=== PATIENT | female | born 1990 | race Caucasian/White ===

== ENCOUNTER 2017-04-03 08:19 | Inpatient (IN) | payer BC, MEDICAID ==
[2017-04-03] MEDS ORDERED: BRETHINE 1 MG/ML SQ PRN (17:48)
[2017-04-03] MEDS ORDERED: Zofran 4 MG/2 ML VIAL IV PRN (18:49)
[2017-04-03] MEDS ORDERED: TYLENOL EXTRA STRENGTH 500 MG PO PRN (18:49)
[2017-04-03] MEDS ORDERED: STADOL 2 MG IV PRN (18:49)
[2017-04-03] MEDS ORDERED: Nubain 10 MG/ML IV PRN (18:49)
[2017-04-03] MEDS ORDERED: Phenergan 25 MG INJ IV PRN (18:49)
[2017-04-03] MEDS ORDERED: XYLOCAINE 1% HCL 20 ML MDV IJ PRN (18:49)
[2017-04-03] MEDS ORDERED: Cervidil 10 MG VAG SCH (19:00)
[2017-04-03 19:34] LABS: BASOPHIL % 0.1 % (0.0-0.4); Basophil (Absolute #) 0.01 (0-0.4); Eosinophil % 1.3 % (0.00-5.0); Eosinophil (Absolute #) 0.12 (0-0.5); Granulocyte Absolute (ANC) 7.16 (1.4-6.9); Granulocytes % 78.7 % (36.0-66.0); Hematocrit 27.9 % (35-47); Hemoglobin 8.8 gm/dl (12.0-16.0); Lymphocyte (Absolute #) 1.35 (1.0-4.6); Lymphocytes % 14.9 % (24.0-44.0); Mean Cell Volume 77.7 fl (78-100); Mean Corpuscular Hemoglobin 24.5 pg (26-32); Mean Corpuscular Hgb Concent. 31.5 g/dl (32-36); Mean Platelet Volume 12.5 fl (6-9.5); Monocyte (Absolute #) 0.45 (0.0-1.3); Platelet Count 282 K/mm3 (150-450); Red Blood Count 3.59 M/mm3 (4.1-5.4); Red Cell Distribution Width 14.8 % (11.5-14.0); White Blood Count 9.1 K/mm3 (4.0-10.5)
[2017-04-03 19:39] LABS: Amphetamine,Urine NEG. (NEGATIVE); Barbiturate,Urine NEG. (NEGATIVE); Benzodiazepine,Urine NEG. (NEGATIVE); Cocaine,Urine NEG. (NEGATIVE); Methadone,Urine NEG. (NEGATIVE); Opiate,Urine NEG. (NEGATIVE); PCP,Urine NEG. (NEGATIVE); THC,Urine NEG. (NEGATIVE)
[2017-04-04] MEDS: Lactated Ringers 1,000 ML IV SCH ×2 (05:37→09:04)
[2017-04-04] MEDS ORDERED: PITOCIN 30 UNITS/ LR 500 ML 500 ML IV SCH (06:00)
--- NOTE | 2017-04-04 08:34 | XRAY ---
Indication: well-being. Ultrasound biophysical profile study was performed. Comparison: None There is a single viable intrauterine currently in cephalic presentation with heart rate 153 bpm. 4 quadrant MONIQUE is 14.5 cm. Largest amniotic pocket is 7 cm. 2 points given for movements, tone, and amniotic fluid volume. 0 points given for breathing. Impression: Total biophysical profile score is 6 out of 8. Comment: Preliminary report was given to nurse Reis following the exam.
[2017-04-04] MEDS ORDERED: Pepcid 20 MG VIAL IV ONE (10:16)
[2017-04-04] MEDS ORDERED: Reglan 10 MG/2 ML ONE (10:16)
[2017-04-04] MEDS ORDERED: Lactated Ringers 2,000 ML IV ONE (10:29)
[2017-04-04] MEDS ORDERED: KEFZOL 1 GM ONE (10:29)
[2017-04-04] MEDS ORDERED: Reglan 10 MG/2 ML IV SCH (10:30)
[2017-04-04] MEDS ORDERED: Pepcid 20 MG VIAL IV SCH (10:30)
[2017-04-04 10:58] LABS: PTT 28.9 SECONDS (25.3-37.0)
[2017-04-04 11:29] LABS: ABO TYPING A; Antibody Screen NEGATIVE (NEGATIVE); RH TYPING POSITIVE
[2017-04-04] MEDS ORDERED: CLARITIN 10 MG PO PRN (13:04)
[2017-04-04] MEDS ORDERED: Narcan 0.4 MG/ML IV PRN (13:04)
[2017-04-04] MEDS ORDERED: HOLD NARCOTIC ANALGESICS AND SEDATIVES X24 HR MC PRN (13:04)
[2017-04-04] MEDS ORDERED: MORPHINE SULFATE 2 MG INJ IV PRN (13:04)
[2017-04-04] MEDS ORDERED: Nubain 10 MG/ML IV PRN (13:04)
[2017-04-04] MEDS ORDERED: BENADRYL 50 MG/ML IV PRN (13:04)
[2017-04-04] MEDS ORDERED: DEMEROL 50 MG IV PRN (13:04)
[2017-04-04] MEDS: PERCOCET TABLET 5/325MG PO PRN (13:24)
--- NOTE | 2017-04-04 13:50 | OP ---
SURGERY DATE: 04/04/17 SURGERY TIME: 1050 PREOPERATIVE DIAGNOSES: 1. NONREASSURING HEART TONES. POSTOPERATIVE DIAGNOSES: 1. NONREASSURING HEART TONES. PROCEDURE: 1. Primary section. SURGEON: Hamzah Wyatt M.D. ANESTHESIA: Spinal by Matthew Garcia CRNA. SPECIMEN: 1. Placenta was sent for pathology. ESTIMATED BLOOD LOSS: 400 cc. IV: 700 cc of crystalloid. URINE: 100 cc of clear, straw-colored urine. DESCRIPTION OF PROCEDURE: After informed written consent was obtained, the patient was taken to the OR. She had her previously placed laboring epidural dosed by anesthesia and was prepped and draped in the usual sterile fashion. After adequate level of anesthesia was confirmed, a low transverse skin incision was made by knife and carried down to the subcutaneous fat to the level of the fascia. The fascia was nicked on both sides of the midline and extended using curved Nolasco scissors. Superior free edge of the fascia was then grasped with Pascale clamps and the underlying rectus muscles were dissected free. The same was repeated inferiorly. The peritoneal cavity was then opened and bladder blade was inserted and a bladder flap was created and reflected over the lower uterine segment. Horizontal uterine incision was made by knife and carried down to the level of the amniotic membranes which were artificially ruptured. A viable male infant was delivered from the vertex presentation with a strong cry after stimulation. His oropharynx and nares were bulb suctioned free, cord was clamped and cut, and he was handed off to the awaiting nursery team. The placenta was then removed from the uterine cavity and the uterus was exteriorized. The uterine cavity was wiped free of blood and clot and any remaining membranes with Lap sponge. The uterine incision was closed with #1 chromic in a running, locked fashion with good closure and good hemostasis. The posterior cul-de-sac was wiped free of blood and clot and then the uterus was returned to the peritoneal cavity. Lateral gutters were then wiped free of blood and clot with moist Lap sponge and again, the uterine incision was inspected and noted to be hemostatic with good closure. Next, the fascia was closed with 0 Vicryl in a running fashion with good closure and good hemostasis. Subcutaneous fat was irrigated with warm, sterile saline and any areas of bleeding were cauterized with electrocautery. Finally, the skin layer was closed with 4-0, undyed Vicryl in running subcuticular fashion. Steri-Strips and occlusive dressing were placed over the incision and the patient was transferred to the recovery room in excellent condition.
[2017-04-04] MEDS ORDERED: DIPRIVAN 200 MG/20 ML IV ONE (16:01)
[2017-04-04] MEDS ORDERED: Ketamine HCl 50 MG/ML IJ ONE (16:01)
[2017-04-04] MEDS ORDERED: SUBLIMAZE 100 MCG/2 ML IV ONE (16:01)
[2017-04-04] MEDS ORDERED: Nesacaine 3% -Mpf*** 20ML SDV IJ ONE (16:01)
[2017-04-04] MEDS ORDERED: MARCAINE 0.5%-EPI 1:200,000 VL IJ ONE (16:01)
[2017-04-04] MEDS ORDERED: Pitocin 10 UNITS/ML IV ONE (16:01)
[2017-04-04] MEDS ORDERED: Astramorph-Pf 5 MG/10 ML IJ ONE (16:01)
[2017-04-04] MEDS ORDERED: TORAdol 30 mg Injection IJ ONE (16:01)
[2017-04-04] MEDS ORDERED: Versed 2 MG/2 ML Injection IV ONE (16:01)
[2017-04-04] MEDS ORDERED: XYLOCAINE 2%/Epi 1:200000 20ML VIAL MPF IJ ONE (16:01)
[2017-04-04] MEDS ORDERED: Restoril 15 MG PO PRN (18:55)
[2017-04-04] MEDS ORDERED: CORTISONE 1% CREAM TP PRN (18:55)
[2017-04-04] MEDS ORDERED: Adacel Vial IM ONE (18:55)
[2017-04-04] MEDS ORDERED: Dulcolax 10 MG SUPP PR PRN (18:55)
[2017-04-04] MEDS ORDERED: Anucort-HC SUPPOSITORY PR PRN (18:55)
[2017-04-04] MEDS ORDERED: Ambien 10 MG PO PRN (18:55)
[2017-04-04] MEDS ORDERED: Dextrose 5%-Lr IV Solution 1000 ML 1,000 ML IV ONE (19:58)
[2017-04-04] MEDS: Dextrose 5%-Lr IV Solution 1000 ML 1,000 ML IV SCH (20:04)
[2017-04-04] MEDS: Colace 100 MG PO SCH (22:04)
[2017-04-05] MEDS: PERCOCET TABLET 5/325MG PO PRN (01:09)
[2017-04-05] MEDS: Dextrose 5%-Lr IV Solution 1000 ML 1,000 ML IV SCH (04:00)
[2017-04-05] MEDS: MOTRIN 400 MG PO PRN ×3 (06:05→21:33)
[2017-04-05 06:10] LABS: Basophil (Absolute #) 0 (0-0.4); Eosinophil % 0.6 % (0.00-5.0); Eosinophil (Absolute #) 0.05 (0-0.5); Granulocyte Absolute (ANC) 6.62 (1.4-6.9); Granulocytes % 83.2 % (36.0-66.0); Hematocrit 22.7 % (35-47); Hemoglobin 7.1 gm/dl (12.0-16.0); Lymphocyte (Absolute #) 0.92 (1.0-4.6); Lymphocytes % 11.6 % (24.0-44.0); Mean Cell Volume 79.1 fl (78-100); Mean Corpuscular Hemoglobin 24.7 pg (26-32); Mean Corpuscular Hgb Concent. 31.3 g/dl (32-36); Mean Platelet Volume 12.2 fl (6-9.5); Monocyte (Absolute #) 0.37 (0.0-1.3); Monocytes % 4.6 % (0.0-12.0); Platelet Count 196 K/mm3 (150-450); Red Blood Count 2.87 M/mm3 (4.1-5.4); Red Cell Distribution Width 14.4 % (11.5-14.0)
[2017-04-05] MEDS: FERREX 150 PO SCH (10:12)
[2017-04-05] MEDS: Colace 100 MG PO SCH ×2 (10:12→21:33)
[2017-04-05 11:39] VITALS: O2SAT 94
[2017-04-05] MEDS: NORCO 5/325 MG PO PRN ×3 (12:50→21:33)
[2017-04-06] MEDS: NORCO 5/325 MG PO PRN ×6 (01:34→23:42)
[2017-04-06] MEDS: MOTRIN 400 MG PO PRN ×3 (05:36→22:16)
[2017-04-06] MEDS: FERREX 150 PO SCH (10:02)
[2017-04-06] MEDS: Colace 100 MG PO SCH ×2 (10:04→22:16)
[2017-04-06] MEDS ORDERED: PHARMACY DOSING REQUIRED: VANCOMYCIN IV ONE (11:23)
[2017-04-06] MEDS: VANCOCIN 1 GM VIAL*** 1 GM in Sodium Chloride 0.9% 250 ML 250 ML IV SCH ×2 (12:57→21:09)
[2017-04-06] MEDS: FEOSOL 325 MG PO SCH ×2 (15:16→22:16)
[2017-04-07] MEDS: VANCOCIN 1 GM VIAL*** 1 GM in Sodium Chloride 0.9% 250 ML 250 ML IV SCH ×3 (05:31→23:30)
[2017-04-07] MEDS: MOTRIN 400 MG PO PRN ×2 (05:33→16:15)
[2017-04-07] MEDS: NORCO 5/325 MG PO PRN ×3 (05:33→17:17)
[2017-04-07 06:43] LABS: BASOPHIL % 0.2 % (0.0-0.4); Basophil (Absolute #) 0.01 (0-0.4); Eosinophil % 4.2 % (0.00-5.0); Eosinophil (Absolute #) 0.22 (0-0.5); Granulocyte Absolute (ANC) 3.77 (1.4-6.9); Granulocytes % 71.5 % (36.0-66.0); Hematocrit 21.3 % (35-47); Lymphocyte (Absolute #) 1.06 (1.0-4.6); Lymphocytes % 20.1 % (24.0-44.0); Mean Cell Volume 80.7 fl (78-100); Mean Corpuscular Hemoglobin 24.6 pg (26-32); Mean Corpuscular Hgb Concent. 30.5 g/dl (32-36); Mean Platelet Volume 11.4 fl (6-9.5); Monocyte (Absolute #) 0.21 (0.0-1.3); Platelet Count 210 K/mm3 (150-450); Red Blood Count 2.64 M/mm3 (4.1-5.4); Red Cell Distribution Width 14.7 % (11.5-14.0); White Blood Count 5.3 K/mm3 (4.0-10.5)
[2017-04-07 06:46] LABS: Hemoglobin 6.5 gm/dl (12.0-16.0)
[2017-04-07 06:54] LABS: ALBUMIN 1.9 g/dL (3.4-5.0); ALKALINE PHOSPHATASE 93 U/L (46-116); ANION GAP 12.8 MEQ/L (5-15); BLOOD UREA NITROGEN 11 mg/dL (9-20); CHLORIDE 106 mEq/L (98-107); Calcium 8.4 mg/dL (8.5-10.1); Creatinine 1 0.57 mg/dl (0.55-1.30); EST GLOMERULAR FILTRATION RATE > 60 ML/MIN; Glucose 85 MG/DL (70-110); Potassium 3.9 mEq/L (3.5-5.1); SGOT/AST 18 U/L (15-37); SGPT/ALT 10 U/L (12-78); SODIUM 140 mEq/L (136-145)
[2017-04-07] MEDS: Colace 100 MG PO SCH (10:16)
[2017-04-07] MEDS: FEOSOL 325 MG PO SCH ×2 (10:16→14:43)
[2017-04-07] MEDS ORDERED: Sodium Chloride 0.9% 1000 ML 1,000 ML IV SCH ×2 (10:30→11:45)
[2017-04-08] MEDS: FEOSOL 325 MG PO SCH ×2 (00:50→10:17)
[2017-04-08] MEDS: Colace 100 MG PO SCH ×2 (00:50→10:17)
[2017-04-08] MEDS: NORCO 5/325 MG PO PRN ×3 (00:51→10:16)
[2017-04-08 01:19] LABS: BASOPHIL % 0.2 % (0.0-0.4); Basophil (Absolute #) 0.01 (0-0.4); Eosinophil % 4.9 % (0.00-5.0); Eosinophil (Absolute #) 0.23 (0-0.5); Granulocyte Absolute (ANC) 3.16 (1.4-6.9); Granulocytes % 67.7 % (36.0-66.0); Hemoglobin 7.8 gm/dl (12.0-16.0); Lymphocyte (Absolute #) 1.05 (1.0-4.6); Lymphocytes % 22.5 % (24.0-44.0); Mean Cell Volume 80.6 fl (78-100); Mean Corpuscular Hemoglobin 25.1 pg (26-32); Mean Corpuscular Hgb Concent. 31.2 g/dl (32-36); Mean Platelet Volume 10.8 fl (6-9.5); Monocyte (Absolute #) 0.22 (0.0-1.3); Monocytes % 4.7 % (0.0-12.0); Platelet Count 207 K/mm3 (150-450); Red Cell Distribution Width 14.4 % (11.5-14.0); White Blood Count 4.7 K/mm3 (4.0-10.5)
[2017-04-08] MEDS ORDERED: MOTRIN 400 MG ONE (02:47)
[2017-04-08] MEDS: MOTRIN 400 MG PO PRN (03:30)
[2017-04-08] MEDS ORDERED: TROUGH DRUG LEVELS IJ ONE (05:30)
[2017-04-08] MEDS: VANCOCIN 1 GM VIAL*** 1 GM in Sodium Chloride 0.9% 250 ML 250 ML IV SCH (06:56)
--- NOTE | 2017-04-08 09:03 | PCM.DS ---
Discharge Summary Date of Admission: 04/04/17 08:19 Admitting Physician: YUDITH JOHNSON Consults: Consults on Case 04/04/17 13:04 Notify Anesthesia Provider PRN Primary Care Provider: YUDITH JOHNSON Allergies Allergies No Known Drug Allergies Allergy (Verified 04/03/17 19:04) Hospital Summary - Hospital Course Hospital Course: patient was induced elective at 39 wks EGA and required primary for nonreassuring heart tones. she developed an area of redness above her incision post-operatively and required 2 units of packed red blood cells transfused for anemia (preop hemoglobin was only 8.8) the redness has improved, she is ambulating and doing well. - Vitals & Intake/Output Vital Signs: Vital Signs Temperature 97.8 F 04/08/17 02:00 Pulse Rate 68 04/08/17 02:00 Respiratory Rate 20 04/07/17 13:42 Blood Pressure 138/65 04/08/17 02:00 O2 Sat by Pulse Oximetry 94 L 04/05/17 11:00 Intake & Output: Intake & Output 04/05/17 04/06/17 04/07/17 04/08/17 11:59 11:59 11:59 11:59 Intake Total 3625 2600 2450 3380 Output Total 3900 Balance -275 2600 2450 3380 - Lab Result Diagrams: 04/08/17 01:10 04/07/17 05:20 Lab Results-Last 24 Hrs: Lab Results-Last 24 Hours 04/07/17 04/07/17 04/08/17 Range/Units 10:24 10:55 01:10 WBC 4.7 (4.0-10.5) K/mm3 RBC 3.10 L (4.1-5.4) M/mm3 Hgb 7.8 L (12.0-16.0) gm/dl Hct 25.0 L (35-47) % MCV 80.6 (78-100) fl MCH 25.1 L (26-32) pg MCHC 31.2 L (32-36) g/dl RDW 14.4 H (11.5-14.0) % Plt Count 207 (150-450) K/mm3 MPV 10.8 H (6-9.5) fl Gran % 67.7 H (36.0-66.0) % Lymphocytes % 22.5 L (24.0-44.0) % Monocytes % 4.7 (0.0-12.0) % Eosinophils % 4.9 (0.00-5.0) % Basophils % 0.2 (0.0-0.4) % Basophils # 0.01 (0-0.4) Vancomycin Trough (10-20) UG/ML Crossmatch COMPATIBLE COMPATIBLE (COMPATIBLE) 04/08/17 Range/Units 06:55 WBC (4.0-10.5) K/mm3 RBC (4.1-5.4) M/mm3 Hgb (12.0-16.0) gm/dl Hct (35-47) % MCV (78-100) fl MCH (26-32) pg MCHC (32-36) g/dl RDW (11.5-14.0) % Plt Count (150-450) K/mm3 MPV (6-9.5) fl Gran % (36.0-66.0) % Lymphocytes % (24.0-44.0) % Monocytes % (0.0-12.0) % Eosinophils % (0.00-5.0) % Basophils % (0.0-0.4) % Basophils # (0-0.4) Vancomycin Trough 8.2 L (10-20) UG/ML Crossmatch (COMPATIBLE) Discharge Exam General Appearance: no apparent distress, alert Respiratory Exam: normal breath sounds, lungs clear, No respiratory distress Cardiovascular Exam: regular rate/rhythm, normal heart sounds Gastrointestinal/Abdomen Exam: soft, normal bowel sounds, other (incision c/d/i , bruising and subcut. fluid accumulation to pannus) Extremity Exam: normal inspection, normal range of motion Final Diagnosis/Problem List - Final Discharge Diagnosis/Problem (1) delivery delivered Current Visit: Yes Status: Acute (2) Anemia due to blood loss Current Visit: Yes Status: Acute (3) Seroma after procedure Current Visit: Yes Status: Acute - Discharge Disposition: Home, Self-Care Condition: Stable Prescriptions: New Docusate Sodium 100 mg [Colace 100 MG] 100 mg PO BID #60 capsule Ferrous Sulfate 325 mg [Feosol 325 mg] 325 mg PO TID #90 tablet Hydrocodone/Acetaminophen [[place] 5-325 Tablet] 1 each PO Q4-6HPRN PRN #30 tablet MDD 6 PRN Reason: Pain Continue Pediatric Multivitamin No.42 [Flintstones] 1 each PO DAILY Follow up with: YUDITH JOHNSON MD [Primary Care Provider] - 1 Week
[2017-04-08 09:23] VITALS: BP 141/67; PULSE 59
== END 2017-04-08 10:25 | disposition home or self-care (01) | DRG 765 ==
LOC: OB 08:19 → OBSVTOIN 04-04 08:19
PROVIDERS: ADMIT Family Medicine; ATTEND Family Medicine
PROC: 10D00Z1 Extraction of Products of Conception, Low, Open Approach (ICD-10-PCS; principal; 2017-04-04)
DX: O75.0 Maternal distress during labor and delivery (principal); D62 Acute posthemorrhagic anemia; O76 Abnormality in fetal heart rate and rhythm complicating labor and delivery; Z3A.39 39 weeks gestation of pregnancy; Z37.0 Single live birth; O90.2 Hematoma of obstetric wound
CPT/HCPCS: 01967; 01968; 36415; 36430; 62322; 64488; 76819; 76937; 76942; 80053; 80202; 80307; 85025; 85610; 85730; 86850; 86900; 86901; 86922; 90471; 90715; 99140; G0378; J0690; J1885; J2250; J2274; J2405; J2590; J2704; J3010; J3370; L0625; P9016; A9270-GY

== ENCOUNTER 2022-01-16 15:22 | Emergency (ER) | payer BC, OTHER ==
[2022-01-16 16:02] LABS: Appearance CLEAR (CLEAR); Bilirubin NEGATIVE (NEGATIVE); Epithelial Cells RARE /HPF (FEW); Glucose NEGATIVE (NEGATIVE); Ketones TRACE (NEGATIVE); Mucus SLIGHT /HPF (NEGATIVE); Ph 5.5 (5-6); Protein,Urine Dip NEGATIVE (Negative); RBC 0-2 /HPF (0-2); RBC NEGATIVE Ery/ul (0-5); Specific Gravity 1.025 (1.005-1.025)
[2022-01-16 16:03] LABS: Dipstick done @ ? MAIN LAB; Nitrite NEGATIVE (NEGATIVE); Urine Cultured Indicated? NO; Urobilinogen 4 mg/dL (0-1)
[2022-01-16 16:47] LABS: ALKALINE PHOSPHATASE 60 U/L (38-126); AMYLASE 43 U/L (30-110); ANION GAP 9.4 MEQ/L (5-15); BLOOD UREA NITROGEN 13 mg/dL (7-17); Basophil (Absolute #) 0.02 x10^3/uL (0-0.4); CHLORIDE 105 mmol/L (98-107); Calcium 8.2 mg/dL (8.4-10.2); Carbon Dioxide 25 mmol/L (22-30); Creatinine 1 0.52 mg/dL (0.52-1.04); EST GLOMERULAR FILTRATION RATE > 60.0 ML/MIN; Eosinophil % 2.9 % (0.00-5.0); Eosinophil (Absolute #) 0.13 x10^3/uL (0-0.5); Glucose 130 mg/dL (74-106); Hematocrit 36.4 % (35-47); LIPASE 64 U/L (23-300); Lymphocyte (Absolute #) 0.97 x10^3/uL (1.0-4.6); Lymphocytes % 21.5 % (24.0-44.0); Mean Cell Volume 84.7 fL (78-100); Mean Corpuscular Hemoglobin 27.9 pg (26-32); Mean Platelet Volume 11.1 fL (7.5-11.0); Monocyte (Absolute #) 0.19 x10^3/uL (0.0-1.3); Monocytes % 4.2 % (0.0-12.0); Neutrophil % 70.8 % (36.0-66.0); Platelet Count 222 x10^3/uL (150-450); Potassium 3.7 mmol/L (3.5-5.1); Red Cell Distribution Width 13.1 % (11.5-14.0); SGOT/AST 30 U/L (14-36); SGPT/ALT 28 U/L (0-35); SODIUM 136 mmol/L (137-145); Total Protein 7.4 g/dL (6.3-8.2); White Blood Count 4.5 x10^3/uL (4.0-10.5)
--- NOTE | 2022-01-16 17:11 | ERPHSYRPT ---
- History of Present Illness Time Seen by Provider: 01/16/22 16:00 Patient Subjective Stated Complaint: pt states "I was on my way back from [place] when I began to have this sharp pain." Triage Nursing Assessment: pt ambulated into the er; pt is axo x4; c/o RUQ pain; pt states 2/10 pain to RUQ; c/o N/V/D; abd obese, round, soft; active bowel sounds in all quads; vitals wnl Physician History: Patient is a 31-year-old white female who presents with abdominal pain. Yesterday she started with some nausea and vomiting and diarrhea and today while traveling back to the area from [place] developed severe right upper quadrant pain. She denies any fever chills or sweats. Timing/Duration: yesterday Activities at Onset: none Quality: cramping, stabbing Abdominal Pain Onset Location: RUQ Pain Radiation: back Severity of Pain-Max: severe Severity of Pain-Current: mild Modifying Factors: Improves With: nothing Associated Symptoms: back, diarrhea, nausea, vomiting Previous symptoms: same symptoms as today Allergies/Adverse Reactions: No Known Drug Allergies Allergy (Verified 01/16/22 15:45) Hx Tetanus, Diphtheria Vaccination/Date Given: Yes Hx Influenza Vaccination/Date Given: No Hx Pneumococcal Vaccination/Date Given: No Travel Risk - International Travel Have you traveled outside of the country in past 3 weeks: No - Coronavirus Screening Are you exhibiting any of the following symptoms?: Yes Symptoms: Vomiting/Diarrhea Close contact with a COVID-19 positive Pt in past 14-21 Days: No - Vaccine Status Have you recieved a Covid-19 vaccination: No - Review of Systems Constitutional: No Fever, No Chills Eyes: No Symptoms Ears, Nose, & Throat: No Symptoms Respiratory: No Cough, No Dyspnea Cardiac: No Chest Pain, No Edema, No Syncope Abdominal/Gastrointestinal: Abdominal Pain, Nausea, Vomiting, Diarrhea Genitourinary Symptoms: No Dysuria Musculoskeletal: No Back Pain, No Neck Pain Skin: No Rash Neurological: No Dizziness, No Focal Weakness, No Sensory Changes Psychological: No Symptoms Endocrine: No Symptoms All Other Systems: Reviewed and Negative - Past Medical History Pertinent Past Medical History: No - Past Surgical History Past Surgical History: Yes Female Surgical History: Section - Social History Smoking Status: Current every day smoker How long have you smoked: 2yrs Exposure to second hand smoke: Yes Drug Use: none Patient Lives Alone: No - Female History Hx Now: No - Nursing Vital Signs Nursing Vital Signs: Initial Vital Signs Temperature 97.7 F 01/16/22 15:47 Pulse Rate 84 01/16/22 15:47 Respiratory Rate 18 01/16/22 15:47 Blood Pressure 119/77 01/16/22 15:47 O2 Sat by Pulse Oximetry 98 01/16/22 15:47 Pain Scale Pain Intensity 2 - Physical Exam General Appearance: moderate distress, alert Eye Exam: PERRL/EOMI, eyes nml inspection Ears, Nose, Throat Exam: normal ENT inspection, pharynx normal, moist mucous me mbranes Neck Exam: normal inspection, non-tender, supple, full range of motion Respiratory Exam: normal breath sounds, lungs clear, No respiratory distress Cardiovascular Exam: regular rate/rhythm, normal heart sounds Gastrointestinal/Abdomen Exam: tenderness, guarding, rebound, other (Positive Patel sign), No mass Pelvic Exam: not done Rectal Exam: deferred Back Exam: normal inspection, normal range of motion, No CVA tenderness, No vertebral tenderness Extremity Exam: normal inspection, normal range of motion, pelvis stable Neurologic Exam: alert, oriented x 3, cooperative, normal mood/affect, nml cerebellar function, sensation nml, No motor deficits Skin Exam: normal color, warm, dry SpO2: 98 - Radiology Exams Chest X-ray Interpretation: Other (Right lower lobe infiltrate) - CT Exams Abdomen/Pelvis CT Interpretation: Tele-radiologist Report Ordered Tests: Active Orders 24 hr Category Date Time Status EKG-ER Only STAT Care 01/16/22 15:46 Active IV Insertion STAT Care 01/16/22 15:46 Active ABDOMEN AND PELVIS W/0 CONTRAS [CT] Stat Exams 01/16/22 15:47 Taken CHEST 1 VIEW (PORTABLE) Stat Exams 01/16/22 15:47 Completed AMYLASE Stat Lab 01/16/22 16:00 Completed CBC W DIFF Stat Lab 01/16/22 16:00 Completed CMP Stat Lab 01/16/22 16:00 Completed HCG,QUALITATIVE URINE Stat Lab 01/16/22 15:58 Completed LIPASE Stat Lab 01/16/22 16:00 Completed Lactic Acid Stat Lab 01/16/22 16:06 Completed TROPONIN Q4H Lab 01/16/22 16:00 Completed TROPONIN Q4H Lab 01/16/22 20:00 Ordered TROPONIN Q4H Lab 01/17/22 00:00 Ordered UA W/RFX CULTURE Stat Lab 01/16/22 Completed Lab/Rad Data: Laboratory Result Diagrams 01/16/22 16:00 01/16/22 16:00 Laboratory Results 01/16/22 01/16/22 01/16/22 Range/Units Unknown 16:06 16:00 WBC (4.0-10.5) x10^3/uL RBC (4.1-5.4) x10^6/uL Hgb (12.0-16.0) g/dL Hct (35-47) % MCV (78-100) fL MCH (26-32) pg MCHC (32-36) g/dL RDW (11.5-14.0) % Plt Count (150-450) x10^3/uL MPV (7.5-11.0) fL Gran % (36.0-66.0) % Immature Gran % (Auto) (0.00-0.4) % Nucleat RBC Rel Count (0.00-0.1) % Eos # (Auto) (0-0.5) x10^3/uL Immature Gran # (Auto) (0.00-0.03) x10^3u/L Absolute Lymphs (auto) (1.0-4.6) x10^3/uL Absolute Monos (auto) (0.0-1.3) x10^3/uL Absolute Nucleated RBC (0.00-0.01) x10^3u/L Lymphocytes % (24.0-44.0) % Monocytes % (0.0-12.0) % Eosinophils % (0.00-5.0) % Basophils % (0.0-0.4) % Absolute Granulocytes (1.4-6.9) x10^3/uL Basophils # (0-0.4) x10^3/uL Sodium (137-145) mmol/L Potassium (3.5-5.1) mmol/L Chloride (98-107) mmol/L Carbon Dioxide (22-30) mmol/L Anion Gap (5-15) MEQ/L BUN (7-17) mg/dL Creatinine (0.52-1.04) mg/dL Estimated GFR ML/MIN Glucose (74-106) mg/dL Lactic Acid 0.9 (0.4-2.0) Calcium (8.4-10.2) mg/dL Total Bilirubin (0.2-1.3) mg/dL AST (14-36) U/L ALT (0-35) U/L Alkaline Phosphatase (38-126) U/L Troponin I < 0.012 (0.000-0.034) ng/mL Serum Total Protein (6.3-8.2) g/dL Albumin (3.5-5.0) g/dL Amylase (30-110) U/L Lipase (23-300) U/L Urinalys Dipstick Clnc MAIN LAB Urine Color YELLOW (YELLOW) Urine Appearance CLEAR (CLEAR) Urine pH 5.5 (5-6) Ur Specific [place] 1.025 (1.005-1.025) POC Urine Protein Conf NEGATIVE (Negative) Urine Ketones TRACE (NEGATIVE) Urine Nitrite NEGATIVE (NEGATIVE) Urine Bilirubin NEGATIVE (NEGATIVE) Urine Urobilinogen 4 (0-1) mg/dL Urine Leukocytes NEGATIVE (NEGATIVE) Urine WBC (Auto) NONE (0-5) /HPF Urine RBC (Auto) 0-2 (0-2) /HPF U Epithel Cells (Auto) RARE (FEW) /HPF Urine Bacteria (Auto) NONE (NEGATIVE) /HPF Urine RBC NEGATIVE (0-5) Moises/ul Urine Mucus (Auto) SLIGHT (NEGATIVE) /HPF Ur Culture Indicated? NO Urine Glucose NEGATIVE (NEGATIVE) mg/dL Urine HCG, Qual (Negative) 01/16/22 01/16/22 01/16/22 Range/Units 16:00 16:00 15:58 WBC 4.5 (4.0-10.5) x10^3/uL RBC 4.30 (4.1-5.4) x10^6/uL Hgb 12.0 (12.0-16.0) g/dL Hct 36.4 (35-47) % MCV 84.7 (78-100) fL MCH 27.9 (26-32) pg MCHC 33.0 (32-36) g/dL RDW 13.1 (11.5-14.0) % Plt Count 222 (150-450) x10^3/uL MPV 11.1 H (7.5-11.0) fL Gran % 70.8 H (36.0-66.0) % Immature Gran % (Auto) 0.2 (0.00-0.4) % Nucleat RBC Rel Count 0.0 (0.00-0.1) % Eos # (Auto) 0.13 (0-0.5) x10^3/uL Immature Gran # (Auto) 0.01 (0.00-0.03) x10^3u/L Absolute Lymphs (auto) 0.97 L (1.0-4.6) x10^3/uL Absolute Monos (auto) 0.19 (0.0-1.3) x10^3/uL Absolute Nucleated RBC 0.00 (0.00-0.01) x10^3u/L Lymphocytes % 21.5 L (24.0-44.0) % Monocytes % 4.2 (0.0-12.0) % Eosinophils % 2.9 (0.00-5.0) % Basophils % 0.4 (0.0-0.4) % Absolute Granulocytes 3.20 (1.4-6.9) x10^3/uL Basophils # 0.02 (0-0.4) x10^3/uL Sodium 136 L (137-145) mmol/L Potassium 3.7 (3.5-5.1) mmol/L Chloride 105 (98-107) mmol/L Carbon Dioxide 25 (22-30) mmol/L Anion Gap 9.4 (5-15) MEQ/L BUN 13 (7-17) mg/dL Creatinine 0.52 (0.52-1.04) mg/dL Estimated GFR > 60.0 ML/MIN Glucose 130 H (74-106) mg/dL Lactic Acid (0.4-2.0) Calcium 8.2 L (8.4-10.2) mg/dL Total Bilirubin 0.70 (0.2-1.3) mg/dL AST 30 (14-36) U/L ALT 28 (0-35) U/L Alkaline Phosphatase 60 (38-126) U/L Troponin I (0.000-0.034) ng/mL Serum Total Protein 7.4 (6.3-8.2) g/dL Albumin 4.0 (3.5-5.0) g/dL Amylase 43 (30-110) U/L Lipase 64 (23-300) U/L Urinalys Dipstick Clnc Urine Color (YELLOW) Urine Appearance (CLEAR) Urine pH (5-6) Ur Specific [place] (1.005-1.025) POC Urine Protein Conf (Negative) Urine Ketones (NEGATIVE) Urine Nitrite (NEGATIVE) Urine Bilirubin (NEGATIVE) Urine Urobilinogen (0-1) mg/dL Urine Leukocytes (NEGATIVE) Urine WBC (Auto) (0-5) /HPF Urine RBC (Auto) (0-2) /HPF U Epithel Cells (Auto) (FEW) /HPF Urine Bacteria (Auto) (NEGATIVE) /HPF Urine RBC (0-5) Moises/ul Urine Mucus (Auto) (NEGATIVE) /HPF Ur Culture Indicated? Urine Glucose (NEGATIVE) mg/dL Urine HCG, Qual NEGATIVE (Negative) - Progress Progress: improved - Departure Departure Disposition: Home Clinical Impression: Right lower lobe pneumonia Condition: Stable Critical Care Time: No Referrals: YUDITH JOHNSON MD [Primary Care Provider] - Follow up/PCP as directed Instructions: Pneumonia, Adult (DC) Prescriptions: Cephalexin Mh 500 mg [Keflex 500 mg] 500 mg PO QID #40 cap
--- NOTE | 2022-01-16 17:20 | XRAY ---
Indication: Right upper quadrant pain. Comparison: None Portable apical lordotic chest demonstrates mild right base infiltrate versus atelectasis. Remaining heart, left lung, and bony thorax normal.
[2022-01-16 18:21] VITALS: BP 134/64; PULSE 78
[2022-01-16 18:47] VITALS: O2SAT 98
--- NOTE | 2022-01-17 08:37 | XRAY ---
Indication: Right upper quadrant pain. Multiple contiguous axial images obtained through the abdomen and pelvis without contrast. Comparison: None Lung bases demonstrates mild bibasilar subsegmental atelectasis/scarring. Heart borderline enlarged. Noncontrasted stomach and bowel loops appear nonobstructed with normal appendix. 21.3 cm hepatomegaly and 17 cm splenomegaly. Uterus demonstrates IUD in situ. No free fluid/air. Remaining liver, gallbladder, pancreas, spleen, adrenal glands, kidneys, ureters, bladder, uterus, and aorta are unremarkable for noncontrast exam. Osseous structures intact. No ventral or inguinal hernias. Impression: 1. Borderline cardiomegaly, hepatosplenomegaly, and IUD in situ. 2. Remaining CT abdomen/pelvis without contrast exam is negative.
== END 2022-01-16 18:58 | disposition home or self-care (01) ==
LOC: ED 15:22
DX: J18.9 Pneumonia, unspecified organism (principal); R10.11 Right upper quadrant pain; R11.2 Nausea with vomiting, unspecified; R19.7 Diarrhea, unspecified; Z72.0 Tobacco use; Z28.310 Unvaccinated for COVID-19
CPT/HCPCS: 36000; 36415; 71045; 74176; 80053; 81015; 81025; 82150; 83605; 83690; 84484; 85025; 93005; 99284

== ENCOUNTER 2024-01-23 09:53 | Emergency (ER) | payer BC ==
[2024-01-23 10:09] VITALS: TEMP 97.6
[2024-01-23] MEDS ORDERED: TORAdol 30 mg Injection ONE (10:18)
[2024-01-23] MEDS ORDERED: Zofran 4 MG/2 ML VIAL ONE (10:18)
[2024-01-23 10:22] LABS: Absolute Neutrophil Ct (ANC) 7.53 x10^3/uL (1.56-6.13); BASOPHIL % 0.3 % (0.1-1.2); Basophil (Absolute #) 0.03 x10^3/uL (0.01-0.08); Eosinophil % 0.8 % (0.7-5.8); Eosinophil (Absolute #) 0.08 x10^3/uL (0.04-0.36); Hematocrit 36.8 % (34.1-44.9); Hemoglobin 12.6 g/dL (11.2-15.7); IMMATURE GRAN # 0.03 x10^3u/L (0.001-0.031); IMMATURE GRAN % 0.3 % (0.001-0.429); Lymphocyte (Absolute #) 1.64 x10^3/uL (1.18-3.74); Lymphocytes % 16.7 % (19.3-51.7); Mean Cell Volume 84.6 fL (79.4-94.8); Mean Corpuscular Hgb Concent. 34.2 g/dL (32.2-35.5); Mean Platelet Volume 10.5 fL (9.4-12.3); Monocyte (Absolute #) 0.49 x10^3/uL (0.24-0.86); Neutrophil % 76.9 % (34.0-71.1); Platelet Count 258 x10^3/uL (182-369); Red Blood Count 4.35 x10^6/uL (3.93-5.22); White Blood Count 9.8 x10^3/uL (3.98-10.04)
[2024-01-23] MEDS: Zofran 4 MG/2 ML VIAL IV ONE (10:23)
[2024-01-23] MEDS: TORAdol 30 mg Injection IV ONE (10:23)
[2024-01-23 10:35] LABS: ALBUMIN 4.2 g/dL (3.5-5.0); ANION GAP 15.4 MEQ/L (5-15); BILIRUBIN,TOTAL 1.9 mg/dL (0.2-1.3); Calcium 9.2 mg/dL (8.4-10.2); Creatinine 1 0.6 mg/dL (0.52-1.04); EST GLOMERULAR FILTRATION RATE 121.5 ML/MIN; Potassium 3.7 mmol/L (3.5-5.1); Total Protein 7.6 g/dL (6.3-8.2)
--- NOTE | 2024-01-23 11:31 | XRAY ---
Indication: Left flank pain. Multiple contiguous axial images obtained through the abdomen and pelvis without contrast using renal stone protocol. Comparison: January 16, 2022 Lung bases again demonstrates mild bibasilar subsegmental atelectasis/scarring. No infiltrate or effusion. Heart not enlarged. No renal calculus or evidence for obstructive uropathy in either system. Noncontrasted stomach and bowel loops appear nonobstructed with normal appendix. Again 21.1 cm fatty hepatomegaly, 16.1 cm splenomegaly, and uterine IUD in situ. No free fluid/air. Remaining liver, gallbladder, pancreas, spleen, adrenal glands, kidneys, ureters, bladder, uterus, and aorta are unremarkable for noncontrast exam. Osseous structures intact. Impression: 1. Continued negative renal calculus or evidence for obstructive uropathy. 2. Again fatty hepatomegaly and splenomegaly. 3. No acute findings on this noncontrast exam.
[2024-01-23 11:46] LABS: Appearance Turbid (Clear); Bacteria Moderate /HPF (None Seen); Bilirubin Negative (Negative); Blood Moderate (Negative); Epithelial Cells None Seen /HPF (None Seen); Glucose, Urine >=1000 mg/dL (Negative); Hyaline Casts NONE SEEN /LPF (0-2); Ketones 15 (Negative); Leukocyte Esterase Large (Negative); Nitrite Positive (Negative); Ph 5.5 (4.6-8.0); Protein,Urine Dip 100 (Negative); RBC 21-50 /HPF (0-5); Specific Gravity 1.015 (1.005-1.030); Urobilinogen 0.2 mg/dL (0.2); WBC >100 /HPF (0-5)
[2024-01-23] MEDS: ROCEPHIN 2 GM/100 ML NACL 2 GM/100 ML IVPB IV ONE (11:53)
[2024-01-23] MEDS ORDERED: ROCEPHIN 2 GM/100 ML NACL 2 GM/100 ML IVPB IV ONE (11:53)
[2024-01-23 12:03] VITALS: O2SAT 97
--- NOTE | 2024-01-23 12:23 | ERPHSYRPT ---
- History of Present Illness Time Seen by Provider: 01/23/24 11:06 Historian: patient Exam Limitations: no limitations Patient Subjective Stated Complaint: C/O left flank pain for a few days. States worse today. Triage Nursing Assessment: Patient ambulated back to ER holding/gaurding her left lower back. She is alert and oriented. Tearful. NO SOB. Skin tone normal. Physician History: 33-year-old female presented in the ER for almost 1 week history of left flank pain with progressive worsening since last night, moderate to severe sharp shooting with some radiation to the left lower quadrant, aggravated with palpati on and movements and partial relief with lying in a certain position. Denies associated constipation or diarrhea. No urinary complaints. Reports some nausea but no vomiting. No history of kidney stones. Allergies/Adverse Reactions: No Known Drug Allergies Allergy (Verified 01/23/24 10:01) Hx Tetanus, Diphtheria Vaccination/Date Given: Yes Hx Influenza Vaccination/Date Given: Yes Hx Pneumococcal Vaccination/Date Given: No Immunizations Up to Date: Yes Travel Risk - International Travel Have you traveled outside of the country in past 3 weeks: No - Emerging Infectious Disease Are you exhibiting symptoms associated with any current EIDs: Yes Symptoms: Abdominal Pain - Review of Systems Constitutional: No Symptoms Eyes: No Symptoms Ears, Nose, & Throat: No Symptoms Respiratory: No Symptoms Cardiac: No Symptoms Abdominal/Gastrointestinal: Abdominal Pain, Nausea Genitourinary Symptoms: Flank Pain Musculoskeletal: No Symptoms Skin: No Symptoms Neurological: No Symptoms Psychological: No Symptoms Endocrine: No Symptoms Immunological/Allergic: No Symptoms - Past Medical History Pertinent Past Medical History: No - Past Surgical History Past Surgical History: Yes Female Surgical History: Section - Female History Hx Last Menstrual Period: unsure Hx Now: No (Oralia) - Social History Smoking Status: Current every day smoker How long have you smoked: 13 years Exposure to second hand smoke: Yes Drug Use: none Patient Lives Alone: No - Social Determinants of Health Will the patient participate in the screening: Yes Do you worry about a steady place to live?: No Do you have any problems with any of the following?: No known problems In the past 12 months,have you had to go without utilities?: No Transportation Issues: No Has anyone in your support network made you feel unsafe?: No Have you or anyone in your house had to go without enough: No - Nursing Vital Signs Nursing Vital Signs: Initial Vital Signs Temperature 97.6 F 01/23/24 09:55 Pulse Rate 93 H 01/23/24 09:55 Respiratory Rate 20 01/23/24 09:55 Blood Pressure 124/92 01/23/24 09:55 O2 Sat by Pulse Oximetry 98 01/23/24 09:55 Pain Scale Pain Intensity 2 - Physical Exam General Appearance: no apparent distress, alert Eye Exam: PERRL/EOMI Ears, Nose, Throat Exam: normal ENT inspection Neck Exam: normal inspection, non-tender, supple, full range of motion Respiratory Exam: normal breath sounds, lungs clear Cardiovascular Exam: regular rate/rhythm, normal heart sounds Gastrointestinal/Abdomen Exam: soft, normal bowel sounds, tenderness (Left flank/left lower quadrant with positive CVA tenderness) Back Exam: normal inspection, normal range of motion, CVA tenderness Extremity Exam: normal inspection, normal range of motion Neurologic Exam: alert, oriented x 3, cooperative Skin Exam: normal color, warm SpO2 Interpretation: normal SpO2: 97 O2 Delivery: Room Air Ordered Tests: Active Orders 24 hr Category Date Time Status IV Insertion STAT Care 01/23/24 10:09 Active NPO (ED) STAT Care 01/23/24 10:09 Active ABDOMEN AND PELVIS W/0 CONTRAS [CT] Stat Exams 01/23/24 10:10 Completed AMYLASE Stat Lab 01/23/24 10:16 Completed CBC W DIFF Stat Lab 01/23/24 10:16 Completed CMP Stat Lab 01/23/24 10:16 Completed CULTURE,URINE Stat Lab 01/23/24 11:14 Received LIPASE Stat Lab 01/23/24 10:16 Completed UA W/RFX UR CULTURE Stat Lab 01/23/24 11:14 Completed Medication Summary Discontinued Medications Generic Name Dose Route Start Last Admin Trade Name Freq PRN Reason Stop Dose Admin Ceftriaxone Sodium 2 gm in 100 mls @ 200 mls/hr 01/23/24 11:52 01/23/24 12:26 Rocephin 2 Gm/100 Ml Nacl IV 01/23/24 12:21 Infused STAT ONE Infusion Ceftriaxone Sodium Confirm 01/23/24 11:53 Rocephin 2 Gm/100 Ml Nacl Administered 01/23/24 11:54 Dose 2 gm in 100 mls @ ud IV .STK-MED ONE Ketorolac Tromethamine 30 mg 01/23/24 10:09 01/23/24 10:23 Ketorolac Tromethamine 30 Mg/Ml Inj IV 01/23/24 10:10 30 mg STAT ONE Administration Ketorolac Tromethamine Confirm 01/23/24 10:18 Ketorolac Tromethamine 30 Mg/Ml Inj Administered 01/23/24 10:19 Dose 30 mg .ROUTE .STK-MED ONE Ondansetron HCl 4 mg 01/23/24 10:09 01/23/24 10:23 Ondansetron Hcl 4 Mg/2 Ml Vial IV 01/23/24 10:10 4 mg STAT ONE Administration Ondansetron HCl Confirm 01/23/24 10:18 Ondansetron Hcl 4 Mg/2 Ml Vial Administered 01/23/24 10:19 Dose 4 mg .ROUTE .STK-MED ONE Lab/Rad Data: Laboratory Result Diagrams 01/23/24 10:16 01/23/24 10:16 Laboratory Results 01/23/24 01/23/24 01/23/24 Range/Units 11:14 10:20 10:16 WBC (3.98-10.04) x10^3/uL RBC (3.93-5.22) x10^6/uL Hgb (11.2-15.7) g/dL Hct (34.1-44.9) % MCV (79.4-94.8) fL MCH (25.6-32.2) pg MCHC (32.2-35.5) g/dL RDW (11.7-14.4) % Plt Count (182-369) x10^3/uL MPV (9.4-12.3) fL Gran % (34.0-71.1) % Immature Gran % (Auto) (0.001-0.429) % Nucleat RBC Rel Count (0.00-0.2) % Eos # (Auto) (0.04-0.36) x10^3/uL Immature Gran # (Auto) (0.001-0.031) x10^3u/L Absolute Lymphs (auto) (1.18-3.74) x10^3/uL Absolute Monos (auto) (0.24-0.86) x10^3/uL Absolute Nucleated RBC (0.00-0.012) x10^3u/L Lymphocytes % (19.3-51.7) % Monocytes % (4.7-12.5) % Eosinophils % (0.7-5.8) % Basophils % (0.1-1.2) % Absolute Granulocytes (1.56-6.13) x10^3/uL Basophils # (0.01-0.08) x10^3/uL Sodium 135 (135-145) mmol/L Potassium 3.7 (3.5-5.1) mmol/L Chloride 101 (98-107) mmol/L Carbon Dioxide 22 (22-30) mmol/L Anion Gap 15.4 H (5-15) MEQ/L BUN 9 (7-17) mg/dL Creatinine 0.60 (0.52-1.04) mg/dL Estimated GFR 121.5 ML/MIN Glucose 253 H (74-106) mg/dL Hemoglobin A1c 9.22 H (4.5-6.0) % Calcium 9.2 (8.4-10.2) mg/dL Total Bilirubin 1.90 H (0.2-1.3) mg/dL AST 29 (14-36) U/L ALT 42 H (0-35) U/L Alkaline Phosphatase 69 (38-126) U/L Serum Total Protein 7.6 (6.3-8.2) g/dL Albumin 4.2 (3.5-5.0) g/dL Amylase 48 (30-110) U/L Lipase 83 (23-300) U/L Urine Color Yellow (Yellow) Urine Appearance Turbid A (Clear) Urine pH 5.5 (4.6-8.0) Ur Specific Greer 1.015 (1.005-1.030) Urine Protein 100 A (Negative) Urine Glucose (UA) >=1000 A (Negative) mg/dL Urine Ketones 15 A (Negative) Urine Blood Moderate A (Negative) Urine Nitrite Positive A (Negative) Urine Bilirubin Negative (Negative) Urine Urobilinogen 0.2 (0.2) mg/dL Ur Leukocyte Esterase Large A (Negative) U Hyaline Cast (Auto) NONE SEEN (0-2) /LPF Urine Microscopic RBC 21-50 A (0-5) /HPF Urine Microscopic WBC >100 A (0-5) /HPF Ur Epithelial Cells None Seen (None Seen) /HPF Urine Bacteria Moderate A (None Seen) /HPF Urine Culture Reflexed YES (NO) 01/23/24 Range/Units 10:16 WBC 9.8 (3.98-10.04) x10^3/uL RBC 4.35 (3.93-5.22) x10^6/uL Hgb 12.6 (11.2-15.7) g/dL Hct 36.8 (34.1-44.9) % MCV 84.6 (79.4-94.8) fL MCH 29.0 (25.6-32.2) pg MCHC 34.2 (32.2-35.5) g/dL RDW 12.0 (11.7-14.4) % Plt Count 258 (182-369) x10^3/uL MPV 10.5 (9.4-12.3) fL Gran % 76.9 H (34.0-71.1) % Immature Gran % (Auto) 0.3 (0.001-0.429) % Nucleat RBC Rel Count 0.0 (0.00-0.2) % Eos # (Auto) 0.08 (0.04-0.36) x10^3/uL Immature Gran # (Auto) 0.03 (0.001-0.031) x10^3u/L Absolute Lymphs (auto) 1.64 (1.18-3.74) x10^3/uL Absolute Monos (auto) 0.49 (0.24-0.86) x10^3/uL Absolute Nucleated RBC 0.00 (0.00-0.012) x10^3u/L Lymphocytes % 16.7 L (19.3-51.7) % Monocytes % 5.0 (4.7-12.5) % Eosinophils % 0.8 (0.7-5.8) % Basophils % 0.3 (0.1-1.2) % Absolute Granulocytes 7.53 H (1.56-6.13) x10^3/uL Basophils # 0.03 (0.01-0.08) x10^3/uL Sodium (135-145) mmol/L Potassium (3.5-5.1) mmol/L Chloride (98-107) mmol/L Carbon Dioxide (22-30) mmol/L Anion Gap (5-15) MEQ/L BUN (7-17) mg/dL Creatinine (0.52-1.04) mg/dL Estimated GFR ML/MIN Glucose (74-106) mg/dL Hemoglobin A1c (4.5-6.0) % Calcium (8.4-10.2) mg/dL Total Bilirubin (0.2-1.3) mg/dL AST (14-36) U/L ALT (0-35) U/L Alkaline Phosphatase (38-126) U/L Serum Total Protein (6.3-8.2) g/dL Albumin (3.5-5.0) g/dL Amylase (30-110) U/L Lipase (23-300) U/L Urine Color (Yellow) Urine Appearance (Clear) Urine pH (4.6-8.0) Ur Specific Greer (1.005-1.030) Urine Protein (Negative) Urine Glucose (UA) (Negative) mg/dL Urine Ketones (Negative) Urine Blood (Negative) Urine Nitrite (Negative) Urine Bilirubin (Negative) Urine Urobilinogen (0.2) mg/dL Ur Leukocyte Esterase (Negative) U Hyaline Cast (Auto) (0-2) /LPF Urine Microscopic RBC (0-5) /HPF Urine Microscopic WBC (0-5) /HPF Ur Epithelial Cells (None Seen) /HPF Urine Bacteria (None Seen) /HPF Urine Culture Reflexed (NO) - Progress Progress: improved, re-examined Progress Note: 01/23/24 13:07 33-year-old is evaluated in the ER for left flank pain for almost a week with progressive worsening lately. Patient has tenderness in the left flank and positive CVA tenderness. She is given symptomatic treatment for pain, on reevaluation she is feeling much improved. Workup showed normal white count, chemistries with glucose of 250s although patient reports she did not eat anything since last night 8 PM and has no known history of diabetes mellitus. Has a bilirubin of 1.9 with normal transaminases. No right upper quadrant tenderness. Does have a UTI and given a dose of Rocephin. Patient with a UTI and right flank pain and CVA tenderness I believe and we will treat her as a acute pyelonephritis. CT abdomen pelvis without contrast is negative for any acute intra-abdominal pelvic findings. I checked her A1c it is 9.2, does have greater than thousand glucose in the urine. I believe patient is diabetic undiagnosed and untreated. I would start her on metformin and Januvia for now and outpatient primary care follow-up recommended. Patient is counseled on diabetic diet, weight loss, regular exercise and monitoring. Discussed signs symptoms of worsening needing return to ER which she seems understanding. Stable for discharge. Counseled pt/family regarding: lab results, diagnosis, need for follow-up, rad results Medical Desision Making - Diagnostic Testing Diagnostic test were ordered, analyzed, and reviewed by me: Yes Radiological Interpretation: Reviewed by me - Risk of complications The pt has a mod risk of morbidity or mortality based on: Need for prescription drug management - Departure Departure Disposition: Home Clinical Impression: Acute pyelonephritis Diabetes mellitus Qualifiers: Diabetes mellitus type: type 2 Condition: Stable Critical Care Time: No Referrals: YUDITH JOHNSON MD [Primary Care Provider] - Follow up with PCP 1 day Instructions: Urinary Tract Infection, Adult ED, Type 2 diabetes Additional Instructions: Take Tylenol/ibuprofen as needed for pain. Drink plenty of fluids. Monitor your glucose regularly, keep a log and follow-up with PCP for reevaluation and adjustment in the doses of medications. Return to ER for intractable pain/nausea vomiting/fever chills etc. Prescriptions: Metformin HCl 500 mg [Glucophage 500 MG] 500 mg PO BIDWM #60 tablet Sitagliptin Phosphate 50 MG [Januvia 50 MG] 50 mg PO DAILY #30 tablet Cefpodoxime Proxetil 200 mg [Vantin 200 mg] 200 mg PO BID 7 Days #14 tablet
[2024-01-23 13:10] VITALS: BP 131/67; PULSE 70; RESP 23
== END 2024-01-23 13:23 | disposition home or self-care (01) ==
LOC: ED 09:53
DX: N10 Acute pyelonephritis (principal); E11.9 Type 2 diabetes mellitus without complications; R10.9 Unspecified abdominal pain; R11.0 Nausea; Z79.899 Other long term (current) drug therapy; Z72.0 Tobacco use
CPT/HCPCS: 36000; 36415; 74176; 80053; 81001; 82150; 83036; 83690; 85025; 87077; 87086; 87186; 96365; 96374; 96375; 99284; J0696; J1885; J2405